=== PATIENT | female | born 2000 | race Caucasian/White ===

== ENCOUNTER 2022-02-07 19:13 | Emergency (ER) | payer BC, SELFPAY ==
[2022-02-07 19:14] VITALS: BP 141/87; PULSE 89; RESP 16; O2SAT 100
--- NOTE | 2022-02-07 19:27 | ED.WOUNDLAC ---
HPI - Wound/Laceration General Chief Complaint: Wound/Laceration Stated Complaint: Thumb Laceration Time Seen by Provider: 02/07/22 19:14 History of Present Illness HPI narrative: Patient is a 21-year-old female who presents ER with laceration to her left thumb. Patient was removing a razor from its case when she sliced the ulnar aspect of her thumb over the proximal phalanx. She reports some tingling. Unknown last tetanus shot. Range of motion preserved. Pressure bandage applied by EMS. Related Data Allergies Allergy/AdvReac Type Severity Reaction Status Date / Time No Known Allergies Allergy Unverified 10/03/18 15:05 Review of Systems Integumentary/Breasts: Skin/Breast: Denies pruritus and Denies rash Comments: thumb laceration Neurologic: Comments: tingling left thumb PMFSH Past Medical History Medical History (Updated 02/07/22 @ 20:22 by Meliton Stout MD) Healthy female adult Uterine cyst Excised Surgical History Surgical History (Updated 02/07/22 @ 19:32 by Meliton Stout MD) Hx of breast reduction, elective Social History Social History Smoking status: Never smoker Alcohol intake: never Exam Narrative: GENERAL: Well-appearing, well-nourished, and in no acute distress. HEAD: Normocephalic, atraumatic. CHEST: Clear to auscultation. No respiratory distress. HEART: Regular rate and rhythm. Normal peripheral pulses. EXTREMITIES: Normal range of motion. No edema. 2 cm laceration over the ulnar aspect of the proximal phalanx of the left thumb. Mildly deep. No vascular intact. SKIN: Warm, dry, no rash. NEURO: No focal deficits. Alert and oriented x3. PSYCH: Normal mood and affect. Course Course Emergency Course: Patient did have some pulsatile blood that stopped with compression. Wound repaired. Tetanus updated. Discharge home. Vital Signs Vital signs: Vital Signs Pulse Rate 89 02/07/22 19:14 Respiratory Rate 16 02/07/22 19:14 Blood Pressure 141/87 H 02/07/22 19:14 Pulse Oximetry 100 02/07/22 19:14 Oxygen Delivery Room Air 02/07/22 19:14 Pulse Rate 89 02/07/22 19:14 Respiratory Rate 16 02/07/22 19:14 Blood Pressure 141/87 H 02/07/22 19:14 Pulse Oximetry 100 02/07/22 19:14 Oxygen Delivery Room Air 02/07/22 19:14 Procedures Laceration Laceration 1: Date: 02/07/22 Time: 19:55 Site: other (Left thumb) Size (cm): 2 Description: linear Depth: simple, single layer Local Anesthetic: lidocaine 1% and with epi Amount of anesthesia used (mL): 1.5 ====== Skin Level ====== Skin layer closed with: nylon Size (cm): 5-0 Number of sutures: 4 Technique: simple, interrupted ====== Subcutaneous Layer ====== ====== Muscle Layer ====== ====== Tendon Layer ====== Discharge Plan Discharge Clinical Impression: Laceration Patient Disposition: Home, Self-Care Condition: Stable Instructions: Care For Your Stitches (ED) Additional Instructions: You will need your sutures removed in 14 days. You may return the ER to have them removed to remove them yourself. Monitor your thumb for infection including redness and streaking up your arm, fever over 100.4 ?F, or thick drainage from the wound. Follow-up/Referrals: PHYSICIAN,COLLECTIONS CURATOR [Primary Care Provider] - Kirk Rogers MD [Physician] - 2 Weeks
[2022-02-07] MEDS: TETANUS,DIPHTHERIA,AC PERTUSSIS ADULT (0.5 ML) BOOSTRIX IM (19:31)
== END 2022-02-07 20:36 | disposition home or self-care (01) ==
PROVIDERS: Emergency Provider Emergency Medicine
DX: S61.012A Laceration without foreign body of left thumb without damage to nail, initial encounter (principal); W26.9XXA Contact with unspecified sharp object(s), initial encounter; Z23 Encounter for immunization
CPT/HCPCS: 12001; 90471; 90715; 99282